=== PATIENT | male | born 1995 | race Caucasian/White ===

== ENCOUNTER 2017-03-04 17:49 | Emergency (ER) | payer OTHER ==
[~2017-03-04] VITALS: Ht 182.9 cm; Wt 90.0 kg
[2017-03-04 17:57] VITALS: BP 130/66; PULSE 75; RESP 12; TEMP 98.6; O2SAT 100
--- NOTE | 2017-03-04 18:00 | PD ---
Physical Exam Date Seen by Provider: Mar 04, 2017 Time Seen by Provider: 17:52 Narrative 22 YOWM C/O 1 WEEK OF STOMACH PAIN WORSE DEEP BREATH. CP,DIZZY WITH PRE WORK OUT. NOW PAIN AROUND TO HIS BACK AND KIDNEYS VSS. AWAITING BED PLACEMENT [facility] Medical Record Reviewed: Yes Supervised Visit with [place]: Yes Daniel Hathaway Mar 04, 2017 18:00
[2017-03-04] MEDS ORDERED: SODIUM CHLOR 0.9% 1000 ML INJ 1,000 ML IV SCH (19:39)
[2017-03-04] MEDS ORDERED: KETOROLAC TROMETHAMINE 30 MG/ML (IVP) VIAL IVP ONE (19:45)
[2017-03-04] MEDS ORDERED: ONDANSETRON HCL 4 MG/2 ML VIAL IVP ONE (19:45)
[2017-03-04] MEDS ORDERED: SODIUM CHLORIDE 0.9% FLUSH 10 ML FLUSH IV FLUSH PRN (19:45)
--- NOTE | 2017-03-04 19:46 | PD ---
HPI Chief Complaint: Abdominal Pain Time Seen by Provider: 19:30 Travel History International Travel<30 days: No Contact w/Intl Traveler<30days: No Traveled to known affect area: No History of Present Illness HPI The patient is a 22-year-old male who presents to the emergency department for abdominal pain. The patient states he developed left upper quadrant abdominal pain and left flank pain several days ago. The patient states he works out on a regular basis, was taking pre-workout supplements that contained caffeine as well as other supplements including testosterone boosters. The patient ran out of his supplements and started taking a friend's supplements. The patient states after he started taking his friend supplements he developed chest pain and left upper quadrant abdominal pain. The chest pain is resolved, however, he continues to have left upper quadrant and left flank abdominal pain which is intermittent, moderate, without any known alleviating or exacerbating factors. He does complain of mild nausea and one episode of diarrhea which she describes is straight "water ", without any visible stool. The patient denies any fever, chills, or sweats. He denies a history of chronic medical problems. He denies any dysuria, frequency, or urgency. [facility] Past Medical History Medical History: Denies Significant Hx Past Surgical History Surgical History: No Previous Surgery Social History Tobacco Use: Yes (quarter pack of cigarettes per day) Allergies-Medications (Allergen,Severity, Reaction): Coded Allergies: Penicillin (Verified Allergy, Mild, 03/04/17) Reported Meds & Prescriptions Reported Meds & Active Scripts Active Reported Azithromycin 250 Mg Tab 250 Mg PO DAILY Review of Systems Except as stated in HPI: all other systems reviewed are Neg General / Constitutional: No: Fever Cardiovascular: Positive: Chest Pain or Discomfort (after taken supplements several days ago which has resolved) Respiratory: No: Shortness of Breath Gastrointestinal: Positive: Nausea, Diarrhea, Abdominal Pain, No: Vomiting Genitourinary: No: Dysuria, Decreased Urinary Output Musculoskeletal: No: Myalgias, Arthralgias Neurologic: No: Dizziness Physical Exam Narrative GENERAL: Awake, alert, pleasant 22-year-old male who appears his stated age and is in no acute respiratory distress. SKIN: Focused skin assessment warm/dry. HEAD: Atraumatic. Normocephalic. EYES: Pupils equal and round. No scleral icterus. No injection or drainage. ENT: No nasal bleeding or discharge. Mucous membranes pink and moist. NECK: Trachea midline. No JVD. CARDIOVASCULAR: Regular rate and rhythm. No murmur appreciated. RESPIRATORY: No accessory muscle use. Clear to auscultation. Breath sounds equal bilaterally. GASTROINTESTINAL: Abdomen soft, mild tenderness left upper quadrant left flank. No rebound tenderness. No obvious hepatomegaly or splenomegaly on exam. MUSCULOSKELETAL: No obvious deformities. No clubbing. No cyanosis. No edema. NEUROLOGICAL: Awake and alert. No obvious cranial nerve deficits. Motor grossly within normal limits. Normal speech. PSYCHIATRIC: Appropriate mood and affect; insight and judgment normal. Data Data Last Documented VS Vital Signs Date Time Temp Pulse Resp B/P Pulse Ox O2 Delivery O2 Flow Rate FiO2 03/04/17 20:31 73 15 139/84 100 Room Air 03/04/17 17:57 98.6 Orders Complete Blood Count With Diff (03/04/17 19:39) Comprehensive Metabolic Panel (03/04/17 19:39) Lipase (03/04/17 19:39) Urinalysis - C+S If Indicated (03/04/17 19:39) Ct Abd/Pel W/O Iv Contrast (03/04/17 19:39) Iv Access Insert/Monitor (03/04/17 19:39) Ecg Monitoring (03/04/17 19:39) Oximetry (03/04/17 19:39) Ondansetron Inj (Zofran Inj) (03/04/17 19:45) Sodium Chlor 0.9% 1000 Ml Inj (Ns 1000 M (03/04/17 19:39) Sodium Chloride 0.9% Flush (Ns Flush) (03/04/17 19:45) Ketorolac Inj (Toradol Inj) (03/04/17 19:45) Labs Laboratory Tests Test 03/04/17 19:48 White Blood Count 12.9 TH/MM3 Red Blood Count 4.93 MIL/MM3 Hemoglobin 15.3 GM/DL Hematocrit 44.1 % Mean Corpuscular Volume 89.5 FL Mean Corpuscular Hemoglobin 31.1 PG Mean Corpuscular Hemoglobin 34.8 % Concent Red Cell Distribution Width 12.5 % Platelet Count 241 TH/MM3 Mean Platelet Volume 8.7 FL Neutrophils (%) (Auto) 71.0 % Lymphocytes (%) (Auto) 20.7 % Monocytes (%) (Auto) 7.3 % Eosinophils (%) (Auto) 0.7 % Basophils (%) (Auto) 0.3 % Neutrophils # (Auto) 9.2 TH/MM3 Lymphocytes # (Auto) 2.7 TH/MM3 Monocytes # (Auto) 0.9 TH/MM3 Eosinophils # (Auto) 0.1 TH/MM3 Basophils # (Auto) 0.0 TH/MM3 CBC Comment DIFF FINAL Differential Comment Urine Color YELLOW Urine Turbidity CLEAR Urine pH 5.5 Urine Specific [place] 1.014 Urine Protein NEG mg/dL Urine Glucose (UA) NEG mg/dL Urine Ketones NEG mg/dL Urine Occult Blood NEG Urine Nitrite NEG Urine Bilirubin NEG Urine Urobilinogen LESS THAN 2.0 MG/DL Urine Leukocyte Esterase NEG Urine RBC LESS THAN 1 /hpf Urine WBC 1 /hpf Urine Squamous Epithelial <1 /hpf Cells Microscopic Urinalysis Comment CULT NOT INDICATED Sodium Level 138 MEQ/L Potassium Level 3.5 MEQ/L Chloride Level 102 MEQ/L Carbon Dioxide Level 27.3 MEQ/L Anion Gap 9 MEQ/L Blood Urea Nitrogen 24 MG/DL Creatinine 0.89 MG/DL Estimat Glomerular Filtration 108 ML/MIN Rate Random Glucose 88 MG/DL Calcium Level 9.3 MG/DL Total Bilirubin 0.3 MG/DL Aspartate Amino Transf 21 U/L (AST/SGOT) Alanine Aminotransferase 35 U/L (ALT/SGPT) Alkaline Phosphatase 113 U/L Total Protein 7.6 GM/DL Albumin 4.0 GM/DL Lipase 111 U/L [facility] Medical Decision Making Medical Screen Exam Complete: Yes Emergency Medical Condition: Yes Medical Record Reviewed: Yes Interpretation(s) Last Impressions Abdomen/Pelvis CT 03/04/171938 Signed Impressions: Service Date/Time: Saturday, March 04, 2017 20:01 - CONCLUSION: Negative noncontrast CT abdomen/pelvis. No evidence of renal stones or hydronephrosis. Natalio Cannon MD Laboratory Tests Test 03/04/17 19:48 White Blood Count 12.9 TH/MM3 Red Blood Count 4.93 MIL/MM3 Hemoglobin 15.3 GM/DL Hematocrit 44.1 % Mean Corpuscular Volume 89.5 FL Mean Corpuscular Hemoglobin 31.1 PG Mean Corpuscular Hemoglobin 34.8 % Concent Red Cell Distribution Width 12.5 % Platelet Count 241 TH/MM3 Mean Platelet Volume 8.7 FL Neutrophils (%) (Auto) 71.0 % Lymphocytes (%) (Auto) 20.7 % Monocytes (%) (Auto) 7.3 % Eosinophils (%) (Auto) 0.7 % Basophils (%) (Auto) 0.3 % Neutrophils # (Auto) 9.2 TH/MM3 Lymphocytes # (Auto) 2.7 TH/MM3 Monocytes # (Auto) 0.9 TH/MM3 Eosinophils # (Auto) 0.1 TH/MM3 Basophils # (Auto) 0.0 TH/MM3 CBC Comment DIFF FINAL Differential Comment Urine Color YELLOW Urine Turbidity CLEAR Urine pH 5.5 Urine Specific [place] 1.014 Urine Protein NEG mg/dL Urine Glucose (UA) NEG mg/dL Urine Ketones NEG mg/dL Urine Occult Blood NEG Urine Nitrite NEG Urine Bilirubin NEG Urine Urobilinogen LESS THAN 2.0 MG/DL Urine Leukocyte Esterase NEG Urine RBC LESS THAN 1 /hpf Urine WBC 1 /hpf Urine Squamous Epithelial <1 /hpf Cells Microscopic Urinalysis Comment CULT NOT INDICATED Sodium Level 138 MEQ/L Potassium Level 3.5 MEQ/L Chloride Level 102 MEQ/L Carbon Dioxide Level 27.3 MEQ/L Anion Gap 9 MEQ/L Blood Urea Nitrogen 24 MG/DL Creatinine 0.89 MG/DL Estimat Glomerular Filtration 108 ML/MIN Rate Random Glucose 88 MG/DL Calcium Level 9.3 MG/DL Total Bilirubin 0.3 MG/DL Aspartate Amino Transf 21 U/L (AST/SGOT) Alanine Aminotransferase 35 U/L (ALT/SGPT) Alkaline Phosphatase 113 U/L Total Protein 7.6 GM/DL Albumin 4.0 GM/DL Lipase 111 U/L Differential Diagnosis Differential diagnoses includes pancreatitis, gastritis, peptic ulcer disease, splenomegaly, hepatitis, side effect from supplements, nephrolithiasis, pyelonephritis, hydronephrosis. Narrative Course IV was established, labs are drawn and sent, and the patient was placed on cardiac telemetry monitoring and continuous pulse oximetry monitoring. The patient was administered Toradol, Zofran, and IV fluids. CT of the abdomen and pelvis was ordered. Laboratory evaluation reveals mildly elevated white count 12.9, however, UA is unremarkable, LFTs are unremarkable, and lipase is unremarkable. CT of the abdomen and pelvis is negative, no acute pathology noted. The patient is advised to stop supplements, if he is going to continue supplements, start one supplemented time and try for approximately 2 weeks to evaluate for side effects. He is also advised to follow-up with his primary physician. Activity as tolerated. Diagnosis Primary Impression: Abdominal pain Qualified Code: R10.12 - Left upper quadrant pain Patient Instructions: General Instructions Additional Instructions: Follow-up with your primary physician. Activity as tolerated. Tylenol and/or Motrin as needed for pain. Return if symptoms worsen or progress. Please provide a patient a copy of his CT results and lab results at discharge. Med/Other Pt SpecificInfo: No Change to Meds Disposition: 01 DISCHARGE HOME Condition: Stable Clovis Mena MD Mar 04, 2017 19:46
[2017-03-04 19:52] VITALS: O2SAT 100
[2017-03-04] MEDS ORDERED: AZIT250T3 PO (19:55)
[2017-03-04 20:05] LABS: AUTOMATED NEUTROPHIL # 9.2 TH/MM3 (1.8-7.7); BASOPHIL % 0.3 % (0.0-2.0); EOSINOPHIL # 0.1 TH/MM3 (0-0.4); EOSINOPHIL % 0.7 % (0.0-4.0); HEMATOCRIT 44.1 % (39.0-51.0); HEMO FLAGS DIFF FINAL; LYMPH % 20.7 % (9.0-44.0); LYMPHOCYTE # 2.7 TH/MM3 (1.0-4.8); MEAN CELL VOLUME 89.5 FL (80.0-100.0); MEAN CORPUSCULAR HEMOGLOBIN 31.1 PG (27.0-34.0); MEAN CORPUSCULAR HGB CONC 34.8 % (32.0-36.0); MONO % 7.3 % (0.0-8.0); PLATELET COUNT 241 TH/MM3 (150-450); RED BLOOD COUNT 4.93 MIL/MM3 (4.50-5.90); RED CELL DISTRIBUTION WIDTH 12.5 % (11.6-17.2); WHITE BLOOD COUNT 12.9 TH/MM3 (4.0-11.0)
[2017-03-04 20:06] LABS: BLOOD, URINE NEG (NEG); COMMENT (UR) CULT NOT INDICATED; CULTURE IF INDICATED CULT NOT INDICATED; GLUCOSE,URINE NEG (NEG); KETONE, URINE NEG (NEG); NITRITE,URINE NEG (NEG); PH, URINE 5.5 (5.0-8.5); SQUAMOUS EPITHELIAL CELL URINE <1 /hpf (0-5); URINE COLOR YELLOW (YELLW/STRAW)
--- NOTE | 2017-03-04 20:20 | RADRPT ---
EXAM DATE/TIME: 03/04/2017 20:01 [facility] COMPARISON: No previous studies available for comparison. INDICATIONS : Left upper quadrant and left flank pain. ORAL CONTRAST: No oral contrast ingested. RADIATION DOSE: 14.46 CTDIvol (mGy) MEDICAL HISTORY : None SURGICAL HISTORY : None. ENCOUNTER: Initial ACUITY: 1 day PAIN SCALE: 7/10 LOCATION: Left flank TECHNIQUE: Volumetric scanning of the abdomen and pelvis was performed. Using automated exposure control and ad justment of the mA and/or kV according to patient size, radiation dose was kept as low as reasonably achievable to obtain optimal diagnostic quality images. FINDINGS: LOWER LUNGS: The visualized lower lungs are clear. LIVER: Homogeneous density without lesion. There is no dilation of the biliary tree. No calcified gallston es. SPLEEN: Normal size without lesion. PANCREAS: Within normal limits. KIDNEYS: Normal in size and shape. There is no mass, stone, or hydronephrosis. No calcifications along the c ourse of either ureter. ADRENAL GLANDS: Within normal limits. VASCULAR: There is no aortic aneurysm. BOWEL/MESENTERY: The stomach, small bowel, and colon demonstrate no acute abnormality. There is no free intraperitone al air or fluid. ABDOMINAL WALL: Within normal limits. RETROPERITONEUM: There is no lymphadenopathy. BLADDER: No wall thickening or mass. REPRODUCTIVE: Within normal limits. INGUINAL: There is no lymphadenopathy or hernia. MUSCULOSKELETAL: Within normal limits for patient age. CONCLUSION: Negative noncontrast CT abdomen/pelvis. No evidence of renal stones or hydronephrosis. Natalio Cannon MD on March 04, 2017 at 20:17 Board Certified Radiologist. This report was verified electronically.
[2017-03-04 20:29] LABS: ALKALINE PHOSPHATASE 113 U/L (45-117); ALT (GPT) 35 U/L (12-78); ANION GAP 9 MEQ/L (5-15); AST (GOT) 21 U/L (15-37); BICARBONATE 27.3 MEQ/L (21.0-32.0); BLOOD UREA NITROGEN 24 MG/DL (7-18); CHLORIDE 102 MEQ/L (98-107); GLOMERULAR FILTRATION RATE 108 ML/MIN (>89); POTASSIUM 3.5 MEQ/L (3.5-5.1); SODIUM (NA) 138 MEQ/L (136-145); TOTAL BILIRUBIN ADULT 0.3 MG/DL (0.2-1.0)
[2017-03-04 20:31] VITALS: BP 139/84; PULSE 73; RESP 15; O2SAT 100
[2017-03-04 21:02] VITALS: RESP 16
== END 2017-03-04 21:19 | disposition home or self-care (01) ==
LOC: NEPA 17:49
DX: R10.12 Left upper quadrant pain (principal); R07.9 Chest pain, unspecified; R11.0 Nausea
CPT/HCPCS: 74176; 80053; 81001; 83690; 85025; 96361; 96374; 96375; 99284; J1885; J2405; J7030